=== PATIENT | female | born 2000 | race Caucasian/White ===

== ENCOUNTER 2021-04-20 21:45 | Emergency (ER) | payer OTHER ==
--- NOTE | 2021-04-20 22:02 | NUR ---
PATIENT CALL TO TRIAGE, NO RESPONSE PATIENT LEFT WITHOUT BEING SEEN BY DR. RUVALCABA. NO FURTHER CARE PROVIDED FOR PATIENT.
--- NOTE | 2021-04-20 22:07 | NUR ---
CALLED FOR THE SECOND TIME, NO RESPONSE
--- NOTE | 2021-04-20 22:17 | NUR ---
BOWDEN FOR THE THIRD TIME, NO RESPONSE
== END 2021-04-20 22:02 | disposition left against medical advice (07) ==
LOC: MED 21:45
DX: Z53.21 Procedure and treatment not carried out due to patient leaving prior to being seen by health care provider (principal)